=== PATIENT | female | born 1960 | race Caucasian/White ===

== ENCOUNTER 2022-12-19 11:38 | Emergency (ER) | payer OTHER, SELFPAY ==
[2022-12-19 11:49] VITALS: BP 128/68; PULSE 82; RESP 16; TEMP 36.9; O2SAT 97; BMI 42.1
--- NOTE | 2022-12-19 12:12 | XR_ITS ---
The [address] [address] Patient Name: MIGUELANGEL LOPES MRN: [id number] date: 1960 Sex: F Assigned Patient Location: ER Current Patient Location: Accession/Order Number: [id number] Exam Date: 12/19/2022 12:40 Report Date: 12/19/2022 13:43 At the request of: WILSON HOFFMAN Procedure: XR ankle RT min 3V RIGHT ANKLE X-RAY THREE VIEWS HISTORY: Pain. COMPARISON: None. FINDINGS: There is soft tissue swelling. There is no acute fracture or dislocation. There are enthesopathic changes at the Achilles tendon insertion. XR/XR ankle RT min 3V IMPRESSION: Soft tissues swelling, no acute bony abnormality. Electronically authenticated by: JAY CALDERON Date: 12/19/2022 13:43
[2022-12-19 12:13] VITALS: PULSE 70
--- NOTE | 2022-12-19 12:22 | ED_ITS ---
HPI - General Adult General Chief complaint: Extremity Injury, Lower Stated complaint: BACK Time Seen by Provider: 12/19/22 11:54 Source: patient Mode of arrival: walk-in Limitations: no limitations History of Present Illness HPI narrative: pain and swelling to the right ankle since August. She said that she had radiofrequency ablation of varicose veins in both legs back in July with a provider in [place]. She has not seen her PCP or any other provider for the right ankle swelling. 4 days ago she developed shooting pains like electricity in the right great toe and distal right foot. This has lessened but not completely stopped. She is wondering if the right ankle swelling and pains are related. She denied history of RA, Lupus, diabetic neuropathy or any connective tissue disorder. No history of gout. No injury to the right ankle. The remainder of the right LE is without pain or swelling. Pain decreased with walking and standing and worsens when she is inactive. Related Data Previous Rx's Medication Instructions Recorded prednisone 20 mg tablet 60 mg PO ONCE #3 tabs 12/19/22 probenecid 500 mg-colchicine 0.5 1 tab PO BID PRN gout pain and 12/19/22 mg tablet swelling #20 tabs Allergies Allergy/AdvReac Type Severity Reaction Status Date / Time atorvastatin [From Lipitor] AdvReac Severe Cramping Verified 12/19/22 11:56 of the Muscles PFSH PFS Social History Smoking status: Never smoker Exam Narrative Exam Narrative: Nurses notes and vital signs reviewed and patient is not hypoxic. afebrile General: Well-appearing and in no apparent distress. Skin: Warm, dry, no pallor noted. No rash. Eye: Pupils are equal, round and EOMI. No scleral icterus. Ears, Nose, Mouth, and Throat: TM are clear, no nasal mucosal hypertrophy. Oral mucosa is moist, no posterior oropharynx erythema, uvula is mid-line Cardiovascular: Regular Rate and Rhythm without murmur, gallop or rub. Respiratory: No accessory muscle use or respiratory distress. Lungs are clear to auscultation, no wheezing, rales or rhonchi Chest Wall: no tenderness Back: No midline thoracic or lumbar vertebral tenderness. No CVA tenderness Musculoskeletal: Right LE with normal ROM, including toes and foot/ankle. Right ankle is swollen and tender throughout. Achilles intact. No erythema or warmth to the right LE. No swelling of the right foot. no calf or popliteal tenderness, no left lower extremity edema/swelling Neurological: A&O x4. No cranial nerve dysfunction observed. No truncal ataxia. Moves all extremities. Sensation intact. Psychiatric: Cooperative and interactive. Normal mood and affect. Constitutional Vital Signs, click to edit/add: Last Vital Signs Temp 98.5 F 12/19/22 11:49 Pulse 70 12/19/22 12:13 Resp 16 12/19/22 11:49 BP 128/68 12/19/22 11:49 Pulse Ox 97 12/19/22 11:49 O2 Del Method Room Air 12/19/22 11:49 Course Vital Signs Vital signs: Vital Signs Temperature 98.5 F 12/19/22 11:49 Pulse Rate 82 12/19/22 11:49 Respiratory Rate 16 12/19/22 11:49 Blood Pressure 128/68 12/19/22 11:49 Pulse Oximetry 97 12/19/22 11:49 Oxygen Delivery Method Room Air 12/19/22 11:49 Temperature 98.5 F 12/19/22 11:49 Pulse Rate 70 12/19/22 12:13 Respiratory Rate 16 12/19/22 11:49 Blood Pressure 128/68 12/19/22 11:49 Pulse Oximetry 97 12/19/22 11:49 Oxygen Delivery Method Room Air 12/19/22 11:49 Medical Decision Making MDM Narrative Medical decision making narrative: blood drawn and sent for testing. X-rays of the right ankle were also obtained. The patient is found have elevated uric acid. No abnormal findings on ankle x- rays. She was discharged with prescription for colchicine-probenecid and a burst of steroid. She was also referred to [facility] in [place] regarding her peripheral neuropathy. She can also see her PCP in follow up Lab Data Lab results reviewed: Yes I reviewed the patient's lab results Labs: Lab Results 12/19/22 Range/Units 12:26 WBC 4.6 (4.0-11.0) 10^3/uL RBC 4.36 (4.20-5.40) 10^6/uL Hgb 13.0 (12.0-16.0) g/dL Hct 39.8 (36.0-48.0) % MCV 91.3 (81.0-99.0) fL MCH 29.8 (26.7-34.0) pg MCHC 32.7 (29.9-35.2) g/dL RDW 12.9 (11.0-15.0) % Plt Count 177 (150-450) 10^3/uL MPV 10.3 (9.5-13.5) fL Neut % (Auto) 61.5 (43.0-75.0) % Lymph % (Auto) 27.3 (20.5-60.0) % [place] % (Auto) 6.8 (1.7-12.0) % Eos % (Auto) 3.3 (0.9-7.0) % Baso % (Auto) 0.7 (0.2-2.0) % Neut # (Auto) 2.8 (1.4-6.5) 10^3/uL Lymph # (Auto) 1.3 (1.2-3.8) 10^3/uL [place] # (Auto) 0.3 (0.3-0.8) 10^3/uL Eos # (Auto) 0.2 (0.0-0.7) 10^3/uL Baso # (Auto) 0.0 (0.0-0.1) 10^3/uL Abs Immat Gran (auto) 0.02 (0.00-0.03) 10^3/uL Imm/Tot Granulo (auto) 0.4 (0.0-0.5) % ESR 23 (<=30) mm/hr Uric Acid 6.2 H (2.6-6.0) mg/dL C-Reactive Protein <0.2 (<=1.0) mg/dL Discharge Plan Discharge Chief Complaint: Extremity Injury, Lower Clinical Impression: Gout, Peripheral neuropathy, Ankle pain Patient Disposition: Home, Self-Care Time of Disposition Decision: 13:21 Prescriptions / Home Meds: New probenecid-colchicine 500-0.5 mg tablet 1 tab PO BID PRN (Reason: gout pain and swelling) Qty: 20 0RF prednisone 20 mg tablet 60 mg PO ONCE Qty: 3 0RF Instructions: Gout (ED), Peripheral Neuropathy (ED) Stand Alone Forms: Portal Instructions Referrals: XOCHILT VILLASENOR [Physician] - As soon as possible
[2022-12-19 12:35] LABS: Basophils Percent Auto 0.7 % (0.2-2.0); Eosinophils Absolute Auto 0.2 10^3/uL (0.0-0.7); Eosinophils Percent Auto 3.3 % (0.9-7.0); Hematocrit 39.8 % (36.0-48.0); Immature Granulocytes Abs Auto 0.02 10^3/uL (0.00-0.03); Immature Granulocytes Pct Auto 0.4 % (0.0-0.5); Lymphocytes Absolute Auto 1.3 10^3/uL (1.2-3.8); Lymphocytes Percent Auto 27.3 % (20.5-60.0); Mean Corpuscular HGB Conc 32.7 g/dL (29.9-35.2); Mean Corpuscular Hemoglobin 29.8 pg (26.7-34.0); Mean Corpuscular Volume 91.3 fL (81.0-99.0); Mean Platelet Volume 10.3 fL (9.5-13.5); Monocytes Absolute Auto 0.3 10^3/uL (0.3-0.8); Monocytes Percent Auto 6.8 % (1.7-12.0); Neutrophils Absolute Auto 2.8 10^3/uL (1.4-6.5); Neutrophils Percent Auto 61.5 % (43.0-75.0); Platelet Count 177 10^3/uL (150-450); Red Blood Count 4.36 10^6/uL (4.20-5.40); Red Cell Distribution Width 12.9 % (11.0-15.0); White Blood Count 4.6 10^3/uL (4.0-11.0)
[2022-12-19 12:49] LABS: Erythrocyte Sedimentation Rate 23 mm/hr (<=30)
[2022-12-19 12:55] LABS: Uric Acid 6.2 mg/dL (2.6-6.0)
[2022-12-19 12:56] LABS: C Reactive Protein <0.2 mg/dL (<=1.0)
== END 2022-12-19 13:38 | disposition home or self-care (01) ==
PROVIDERS: Emergency Provider Emergency Medicine
DX: M10.9 Gout, unspecified (principal); G62.9 Polyneuropathy, unspecified; M25.571 Pain in right ankle and joints of right foot
CPT/HCPCS: 36415; 73610; 84550; 85025; 85652; 86140; 99284

== ENCOUNTER 2023-01-11 09:31 | Outpatient (OUT) | payer OTHER, SELFPAY ==
--- NOTE | 2023-01-11 | XR_ITS ---
The [place] [id number] Patient Name: MIGUELANGEL LOPES MRN: [id number] date: 1960 Sex: F Assigned Patient Location: [facility] Current Patient Location: RAD Accession/Order Number: [id number] Exam Date: 01/11/2023 09:53 Report Date: 01/11/2023 15:14 At the request of: AMAURY MAGAÑA Procedure: XR foot RT min 3V EXAM: XR foot RT min 3V HISTORY: RIGHT FOOT PAIN COMPARISON: None. TECHNIQUE: 3 views right foot. FINDINGS: Diffuse soft tissue swelling and edema right foot. Slight chronic appearing sclerotic curvilinear line at the right great toe distal phalanx base but correlate for point tenderness. Minimal degenerative change of the great toe MTP joint. Moderate degenerative change of the midfoot. Small chronic enthesophyte near the base of the fifth metatarsal. Tiny dorsal calcaneal enthesophyte. Scattered degenerative change throughout the IP joints. XR/XR foot RT min 3V IMPRESSION: Curvilinear sclerotic line at the right great toe distal phalanx base probably chronic in nature but correlate for point tenderness. Remainder of the right foot with diffuse edema and chronic degenerative change. Electronically authenticated by: SAMMI GREENE Date: 01/11/2023 15:14
--- NOTE | 2023-01-11 | XR_ITS ---
The [address] [address] Patient Name: MIGUELANGEL LOPES MRN: [id number] date: 1960 Sex: F Assigned Patient Location: RAD Current Patient Location: RAD Accession/Order Number: [id number] Exam Date: 01/11/2023 09:53 Report Date: 01/11/2023 15:10 At the request of: AMAURY MAGAÑA Procedure: XR ankle RT min 3V EXAM: XR ankle RT min 3V HISTORY: RIGHT ANKLE PAIN COMPARISON: 12/19/2022. TECHNIQUE: 3 views right ankle. FINDINGS: Diffuse soft tissue swelling and edema right ankle. No fracture or dislocation. Visualized foot is intact with stable at least moderate degenerative change at the talonavicular joint. Dorsal calcaneal enthesophyte. XR/XR ankle RT min 3V IMPRESSION: Stable soft tissue swelling and edema compared to prior without fracture. Electronically authenticated by: SAMMI GREENE Date: 01/11/2023 15:10
== END 2023-01-11 09:32 | disposition home or self-care (01) ==
LOC: RAD 09:31
PROVIDERS: Visit Provider Physician Assistant
DX: M79.671 Pain in right foot (principal); S99.911A Unspecified injury of right ankle, initial encounter
CPT/HCPCS: 73610; 73630